=== PATIENT | female | born 1950 | race Caucasian/White ===

== ENCOUNTER 2016-10-28 09:27 | Observation (INO) | payer OTHER ==
[~2016-10-28] VITALS: Ht 172.7 cm; Wt 81.0 kg
[2016-10-28] MEDS ORDERED: ASPIRIN 81 MG CHEW PO STA (09:37)
[2016-10-28] MEDS ORDERED: ALUMINUM/MAGNESIUM SUSP 30 ML UDC PO STA (09:37)
[2016-10-28] MEDS ORDERED: NITROGLYCERIN 0.4 MG SL PER TAB CHARGE SL PRN ×2 (09:45→14:00)
--- NOTE | 2016-10-28 09:49 | EMERGENCY ROOM VISIT NOTE ---
History Report prepared by Jacqueline: Dakota Heredia Under the Supervision of: Dr. Bob Tomlin D.O. First contact with patient: 09:30 Chief Complaint: CHEST PAIN Stated Complaint: CHEST PAIN, TINGLING IN ARMS, HIGH BP History of Present Illness The patient is a 66 year old female who presents to the Emergency Room with complaints of persistent chest pain that started a couple days ago. She says that she called her primary care doctor's office this morning, and they recommended that the patient come here for an evaluation. The patient says that the pain is across the front of her chest, and she was not doing anything notable when the pain first came on. The patient rates the pain currently as a 6 out of 10 in severity. She also notes that she has been having arm tingling. The patient states that nothing makes the pain better or worse. She has not seen anybody for the pain. The patient denies any shortness of breath, cough, fevers, abdominal pain, leg swelling, or leg pain. The patient notes that her blood pressure has been high recently. Her blood pressure was 177/100 last night , and 153/93 this morning. The patient takes 5 mg Lisinopril, as well as Omeprazole. The patient took Tylenol last night for the pain, but it did not help. She has no family history of heart disease. The patient does not use tobacco products and she does not drink alcohol. Source of History: patient Onset: A couple days ago Position: chest Symptom Intensity: 6/10 currently Timing: other (persistent) Associated Symptoms: No SOB, No abdominal pain, No cough, No fevers Note: Associated symptoms: Tingling in arms. Denies leg swelling or leg pain. Review of Systems See HPI for pertinent positives & negatives. A total of 10 systems reviewed and were otherwise negative. Past Medical & Surgical Medical Problems: (1) GERD (gastroesophageal reflux disease) (2) HTN (hypertension) (3) Skin problem (4) Urinary problem Surgical Problems: (1) H/O colonoscopy (2) History of cholecystectomy (3) History of hysterectomy (4) Hx of cholecystectomy (5) Hx of tonsillectomy (6) S/P ARIES-BSO Family History Hypertension Social History Smoking Status: Never Smoker Alcohol Use: none Marital Status: Housing Status: lives with family Occupation Status: retired Current/Historical Medications Scheduled Cholecalciferol (Vitamin D), 1 TAB PO DAILY Ferrous Sulfate (Iron), 1 TAB PO DAILY Lisinopril (Zestril), 5 MG PO DAILY Multivitamin (Multivitamin), 1 TAB PO DAILY Ocuvite Preservision (Ocuvite Preservision), 1 TAB PO DAILY Omeprazole (Prilosec), 20 MG PO DAILY Allergies Coded Allergies: Amoxicillin (Verified Allergy, Intermediate, rash, itching, 10/28/16) Physical Exam Vital Signs Date Time Temp Pulse Resp B/P Pulse Ox O2 Delivery O2 Flow Rate FiO2 10/28/16 14:00 69 14 130/82 94 Room Air 10/28/16 14:00 98 Room Air 10/28/16 13:30 66 16 98 10/28/16 13:00 73 15 95 Room Air 10/28/16 12:30 69 17 98 10/28/16 12:00 66 15 129/78 96 10/28/16 11:30 68 15 127/84 96 10/28/16 11:00 68 13 94/75 96 Room Air 10/28/16 10:30 77 22 131/74 97 Room Air 10/28/16 10:07 96 Room Air 10/28/16 10:05 95 18 129/83 90 Room Air 10/28/16 10:00 94 19 147/96 96 Room Air 10/28/16 09:55 80 10/28/16 09:41 77 16 168/95 97 Room Air 10/28/16 09:39 97 Room Air 10/28/16 09:39 97 Room Air 10/28/16 09:34 37.2 88 18 175/93 94 Room Air Physical Exam GENERAL: Patient is awake, alert, mildly anxious appearing but overall comfortable. EYES: The conjunctivae are clear. The pupils are round and reactive. EARS, NOSE, MOUTH AND THROAT: The nose is without any evidence of any deformity. Mucous membranes are moist tongue is midline NECK: The neck is nontender and supple. RESPIRATORY: Normal respiratory effort is noted there is no evidence of wheezing rhonchi or rales CARDIOVASCULAR: Regular rate and rhythm noted there no murmurs rubs or gallops normal S1 normal S2 GASTROINTESTINAL: The abdomen is soft. Bowel sounds are present in all quadrants. Abdomen is nontender MUSCULOSKELETAL/EXTREMITIES: There is no evidence of gross deformity full range of motion is noted in the hips and shoulders SKIN: There is no obvious evidence of any rash. There are no petechiae, pallor or cyanosis noted. NEUROLOGIC: Patient is awake alert and oriented x3. Medical Decision & Procedures ER Provider Diagnostic Interpretation: X-ray results as stated below per interpretation by me and the radiologist. CHEST ONE VIEW PORTABLE CLINICAL HISTORY: CHEST PAIN dyspnea COMPARISON STUDY: No previous studies for comparison. FINDINGS: The bones soft tissues and hemidiaphragms are normal. The cardiomediastinal silhouette is normal. The lungs are clear. The pulmonary vasculature is normal. IMPRESSION: Negative chest. Electronically signed by: Mohinder Garcia M.D. 10/28/2016 10:00 AM Dictated Date/Time: 10/28/2016 10:00 AM Laboratory Results 10/28/16 09:40 Red Blood Count 4.67, Mean Corpuscular Volume 86.5, Mean Corpuscular Hemoglobin 29.6, Mean Corpuscular Hemoglobin Concent 34.2, Mean Platelet Volume 9.9, Neutrophils (%) (Auto) 78.6, Lymphocytes (%) (Auto) 14.5, Monocytes (%) (Auto) 5.5, Eosinophils (%) (Auto) 0.9, Basophils (%) (Auto) 0.4, Neutrophils # (Auto) 6.14, Lymphocytes # (Auto) 1.13, Monocytes # (Auto) 0.43, Eosinophils # (Auto) 0.07, Basophils # (Auto) 0.03 10/28/16 09:40 Test 10/28/16 09:40 10/28/16 10:16 10/28/16 12:14 White Blood Count 7.81 K/uL (4.8-10.8) Red Blood Count 4.67 M/uL (4.2-5.4) Hemoglobin 13.8 g/dL (12.0-16.0) Hematocrit 40.4 % (37-47) Mean Corpuscular Volume 86.5 fL (80-100) Mean Corpuscular Hemoglobin 29.6 pg (25-34) Mean Corpuscular Hemoglobin Concent 34.2 g/dl (32-36) Platelet Count 279 K/uL (130-400) Mean Platelet Volume 9.9 fL (7.4-10.4) Neutrophils (%) (Auto) 78.6 % Lymphocytes (%) (Auto) 14.5 % Monocytes (%) (Auto) 5.5 % Eosinophils (%) (Auto) 0.9 % Basophils (%) (Auto) 0.4 % Neutrophils # (Auto) 6.14 K/uL (1.4-6.5) Lymphocytes # (Auto) 1.13 K/uL (1.2-3.4) Monocytes # (Auto) 0.43 K/uL (0.11-0.59) Eosinophils # (Auto) 0.07 K/uL (0-0.5) Basophils # (Auto) 0.03 K/uL (0-0.2) RDW Standard Deviation 43.7 fL (36.4-46.3) RDW Coefficient of Variation 13.9 % (11.5-14.5) Immature Granulocyte % (Auto) 0.1 % Immature Granulocyte # (Auto) 0.01 K/uL (0.00-0.02) Prothrombin Time 10.9 SECONDS (9.0-12.0) Prothromb Time International Ratio 1.0 (0.9-1.1) Activated Partial Thromboplast Time 27.2 SECONDS (21.0-31.0) Partial Thromboplastin Ratio 1.0 Anion Gap 8.0 mmol/L (3-11) Est Creatinine Clear Calc Drug Dose 62.8 ml/min Estimated GFR () 70.0 Estimated GFR (Non- 60.4 BUN/Creatinine Ratio 12.0 (10-20) Calcium Level 9.2 mg/dl (8.5-10.1) Total Bilirubin 0.4 mg/dl (0.2-1) Direct Bilirubin 0.1 mg/dl (0-0.2) Aspartate Amino Transf (AST/SGOT) 18 U/L (15-37) Alanine Aminotransferase (ALT/SGPT) 30 U/L (12-78) Alkaline Phosphatase 80 U/L (45-117) Total Creatine Kinase 76 U/L (26-192) Creatine Kinase MB 0.6 ng/ml (0.5-3.6) Creatine Kinase MB Ratio 0.8 (0-3.0) Total Protein 7.3 gm/dl (6.4-8.2) Albumin 4.2 gm/dl (3.4-5.0) Lipase 194 U/L (73-393) Bedside D-Dimer 420 ng/mlFEU (0-450) Troponin I < 0.015 ng/ml (0-0.045) Laboratory results per my review. Medications Administered Medications (Trade) Dose Ordered Sig/Dominick Route Start Time Stop Time Status Last Admin Dose Admin Aspirin (Aspirin Chew) 324 mg NOW STAT PO 10/28/16 09:37 10/28/16 09:39 DC 10/28/16 09:58 324 MG Al Hydroxide/Mg Hydroxide (Maalox Susp) 30 ml NOW STAT PO 10/28/16 09:37 10/28/16 09:39 DC 10/28/16 09:58 30 ML Nitroglycerin (Nitrostat Tab) 0.4 mg Q5M PRN SL 10/28/16 09:45 10/28/16 14:51 DC 10/28/16 09:59 0.4 MG Acetaminophen (Tylenol Tab) 1,000 mg NOW STAT PO 10/28/16 11:15 10/28/16 11:17 DC 10/28/16 11:20 1,000 MG ECG Indication: chest pain Rate (beats per minute): 87 Rhythm: normal sinus Findings: PVC (frequent), T-wave inversion (High lateral) Comparison ECG Date: no prior available Change: Repeat ECG: Normal sinus rhythm at 64 bpm, no ectopy, no acute ST segment abnormalities. Persistence of high lateral T-wave inversions noted, resolution of PVC's, otherwise no change from earlier tracing. ED Course 929: The patient was evaluated in room A2. A complete history and physical examination were performed. 0937: Ordered Maalox Susp 30 ml PO, Aspirin Chew 324 mg PO. 0945: Ordered Nitrostat Tab 0.4 mg SL PRN. 1042: I reevaluated and updated the patient. 1115: Ordered Tylenol Tab 1000 mg PO. 1257: Upon reevaluation, the patient is resting comfortably. I discussed results and treatment plan with her. She verbalizes agreement and understanding. The patient will be evaluated for further management and care. 1400: I discussed the patient with Dr. Ethan Eldridge violent crimes detective. He will evaluate the patient for further treatment. Medical Decision Triage Nursing notes reviewed. Differential diagnosis: Etiologies such as cardiac ischemia, aortic dissection, pulmonary embolism, pneumonia, pneumothorax, musculoskeletal, infections, pericarditis, myocarditis , esophageal rupture, gastrointestinal, as well as others were entertained. The patient is a 66-year-old female who presented to emergency department for an evaluation of substernal chest pain. The patient states the pain was not exertional but she was concerned about the possibility of coronary artery disease. The patient was given aspirin and nitroglycerin in the emergency department. She did not have significant improvement of her pain. The patient was observed in the emergency department and had serial EKGs. She also had multiple troponins which were negative. I discussed the patient's laboratory and radiographic studies with her. I also discussed the limitations of the emergency department workup for chest pain with her. Given the patient's concerns I also discussed his case with the on-call [facility] hospitalist group. They've agreed to evaluate the patient in the emergency department for further management and disposition. The patient's d-dimer is negative. I do not feel this is consistent with a pulmonary embolism. She does not have any significant abdominal tenderness. Consults Time Called: 1300 Consulting Physician: Dr. Ethan Eldridge violent crimes detective Returned Call: 1400 I discussed the patient with Dr. Ethan Eldridge violent crimes detective. He will evaluate the patient for further treatment. Impression Primary Impression: Chest pain Additional Impression: Abnormal EKG Scribe Attestation The scribe's documentation has been prepared under my direction and personally reviewed by me in its entirety. I confirm that the note above accurately reflects all work, treatment, procedures, and medical decision making performed by me. Departure Information Dispostion Being Evaluated By Hospitalist Referrals Eleanor CEE M.D. (PCP) Patient Instructions My [facility] Problem Qualifiers Primary Impression: Chest pain Chest pain type: unspecified Qualified Codes: R07.9 - Chest pain, unspecified
[2016-10-28 09:56] LABS: BASO % 0.4 %; BASO ABS # 0.03 K/uL (0-0.2); COMPLETE YES; EOS % 0.9 %; HEMATOCRIT 40.4 % (37-47); IG% 0.1 %; LYMPH % 14.5 %; LYMPH ABS # 1.13 K/uL (1.2-3.4); MEAN CELL VOLUME 86.5 fL (80-100); MEAN CORPUSCULAR HEMOGLOBIN 29.6 pg (25-34); MEAN CORPUSCULAR HGB CONC 34.2 g/dl (32-36); MEAN PLATELET VOLUME 9.9 fL (7.4-10.4); MONO % 5.5 %; NEUT % 78.6 %; PLATELET COUNT 279 K/uL (130-400); RED BLOOD COUNT 4.67 M/uL (4.2-5.4); WHITE BLOOD COUNT 7.81 K/uL (4.8-10.8)
--- NOTE | 2016-10-28 10:02 | DIAGNOSTIC IMAGING REPORT ---
CHEST ONE VIEW PORTABLE CLINICAL HISTORY: CHEST PAIN dyspnea COMPARISON STUDY: No previous studies for comparison. FINDINGS: The bones soft tissues and hemidiaphragms are normal. The cardiomediastinal silhouette is normal. The lungs are clear. The pulmonary vasculature is normal. IMPRESSION: Negative chest. Electronically signed by: Mohinder Garcia M.D. 10/28/2016 10:00 AM Dictated Date/Time: 10/28/2016 10:00 AM
[2016-10-28 10:07] LABS: PROTHROMBIN TIME (PATIENT) 10.9 SECONDS (9.0-12.0)
[2016-10-28 10:13] LABS: ALT/SGPT 30 U/L (12-78); BLOOD UREA NITROGEN 12 mg/dl (7-18); CALCIUM 9.2 mg/dl (8.5-10.1); CARBON DIOXIDE 28 mmol/L (21-32); CHLORIDE 104 mmol/L (98-107); CREATININE 0.97 mg/dl (0.60-1.20); GLUCOSE 99 mg/dl (70-99); POTASSIUM 3.7 mmol/L (3.5-5.1); SODIUM 140 mmol/L (136-145)
[2016-10-28 10:18] LABS: ALKALINE PHOSPHATASE 80 U/L (45-117); AST/SGOT 18 U/L (15-37); CKMB/CK RATIO 0.8 (0-3.0)
[2016-10-28] MEDS ORDERED: MULT-190 PO (10:28)
[2016-10-28] MEDS ORDERED: PRLSR20 PO (10:28)
[2016-10-28] MEDS ORDERED: FERR1TAB23 PO (10:28)
[2016-10-28] MEDS ORDERED: CHOL100010 PO (10:28)
[2016-10-28] MEDS ORDERED: MULT-506 PO (10:28)
[2016-10-28] MEDS ORDERED: LISI-729 PO (10:28)
[2016-10-28] MEDS ORDERED: ACETAMINOPHEN 500 MG TAB PO STA (11:15)
[2016-10-28] MEDS ORDERED: ATORVASTATIN 40 MG TAB PO ONE (13:56)
[2016-10-28 14:00] VITALS: BP 145/83; PULSE 70; TEMP 36.4; O2SAT 98; BMI 27.1
[2016-10-28] MEDS ORDERED: ONDANSETRON INJ 2 MG/ML 2 ML VIAL IV PRN (14:00)
[2016-10-28] MEDS ORDERED: ACETAMINOPHEN 325 MG TAB PO PRN (14:00)
[2016-10-28] MEDS ORDERED: ALUMINUM/MAGNESIUM SUSP 30 ML UDC PO PRN (14:00)
--- NOTE | 2016-10-28 14:08 | History and Physical ---
History & Physical Date & Time of Service: Oct 28, 2016 at 13:59 Chief Complaint: Chest Pain, Tingling In Arms, High Bp Primary Care Physician: Eleanor CEE M.D. History of Present Illness Source: patient, family, clinic records, hospital records Patient seen and examined. 66 year old female with PMHx of HTN and GERD presents to the ED complaining of chest pressure x 4 days. She states the pressure started over the weekend and has been continuous since but waxing and waning in intensity rating the intensity as a 6/10 at its worst. She reports associated tingling down her BL arms on occasion and nausea. She reports last night her SBP was >170She denies fevers, chills, URI symptoms, palpitations, SOB , vomiting ,diarrhea, dysuria, calf pain and edema. She reports recent stress with her father passing away about a month ago. She denies personal or family Hx of CAD and she is a life long nonsmoker. In the ED VS are stable, Troponin is negative x 2, EKG is nonischemic x 2, Ddimer is negative. She received maalox , nitro, Aspirin, and tylenol without any changes in the chest pressure. She will be observed for further workup and treatment. Past Medical/Surgical History Medical Problems: (1) GERD (gastroesophageal reflux disease) Status: Chronic (2) HTN (hypertension) Status: Chronic Surgical Problems: (1) H/O colonoscopy Status: Chronic (2) History of cholecystectomy Status: Resolved (3) History of hysterectomy Status: Resolved (4) Hx of cholecystectomy Status: Chronic (5) Hx of tonsillectomy Status: Chronic (6) S/P ARIES-BSO Status: Chronic Family History Hypertension Social History Smoking Status: Never Smoker Alcohol Use: none Marital Status: Housing status: lives with family Occupational Status: retired Allergies Coded Allergies: Amoxicillin (Verified Allergy, Intermediate, rash, itching, 10/28/16) Home Medications Scheduled Cholecalciferol (Vitamin D), 1 TAB PO DAILY Ferrous Sulfate (Iron), 1 TAB PO DAILY Lisinopril (Zestril), 5 MG PO DAILY Multivitamin (Multivitamin), 1 TAB PO DAILY Ocuvite Preservision (Ocuvite Preservision), 1 TAB PO DAILY Omeprazole (Prilosec), 20 MG PO DAILY Review of Systems See above for pertinent positives & negatives. A total of 10 systems reviewed and were otherwise negative. Physical Exam Vital Signs Date Time Temp Pulse Resp B/P Pulse Ox O2 Delivery O2 Flow Rate FiO2 10/28/16 12:00 66 15 129/78 96 10/28/16 11:30 68 15 127/84 96 10/28/16 11:00 68 13 94/75 96 Room Air 10/28/16 10:30 77 22 131/74 97 Room Air 10/28/16 10:07 96 Room Air 10/28/16 10:05 95 18 129/83 90 Room Air 10/28/16 10:00 94 19 147/96 96 Room Air 10/28/16 09:55 80 10/28/16 09:41 77 16 168/95 97 Room Air 10/28/16 09:39 97 Room Air 10/28/16 09:39 97 Room Air 10/28/16 09:34 37.2 88 18 175/93 94 Room Air General Appearance: + pertinent finding (Pleasant WD/WN 66 year old female lying in bed in NAD with at bedside ) Head: normocephalic, atraumatic Eyes: PERRL, EOMI, sclerae normal ENT: hearing grossly normal, pharynx normal Neck: supple, no JVD Respiratory/Chest: chest non-tender, lungs clear, normal breath sounds, no respiratory distress, no accessory muscle use Cardiovascular: regular rate, rhythm, no edema, no gallop, no JVD, no murmur, normal peripheral pulses Abdomen/GI: normal bowel sounds, non tender, soft Back: normal inspection, no muscle spasm Extremities/Musculoskelatal: no calf tenderness, normal capillary refill, no pedal edema Neurologic/Psych: alert, oriented x 3, + pertinent finding (no focal deficits ) Skin: normal color, warm/dry, no rash Lymphatic: no adenopathy Diagnostics Laboratory Results Results Past 24 Hours Test 10/28/16 09:40 10/28/16 10:16 10/28/16 12:14 Range/Units White Blood Count 7.81 4.8-10.8 K/uL Red Blood Count 4.67 4.2-5.4 M/uL Hemoglobin 13.8 12.0-16.0 g/dL Hematocrit 40.4 37-47 % Mean Corpuscular Volume 86.5 80-100 fL Mean Corpuscular Hemoglobin 29.6 25-34 pg Mean Corpuscular Hemoglobin Concent 34.2 32-36 g/dl Platelet Count 279 130-400 K/uL Mean Platelet Volume 9.9 7.4-10.4 fL Neutrophils (%) (Auto) 78.6 % Lymphocytes (%) (Auto) 14.5 % Monocytes (%) (Auto) 5.5 % Eosinophils (%) (Auto) 0.9 % Basophils (%) (Auto) 0.4 % Neutrophils # (Auto) 6.14 1.4-6.5 K/uL Lymphocytes # (Auto) 1.13 1.2-3.4 K/uL Monocytes # (Auto) 0.43 0.11-0.59 K/uL Eosinophils # (Auto) 0.07 0-0.5 K/uL Basophils # (Auto) 0.03 0-0.2 K/uL RDW Standard Deviation 43.7 36.4-46.3 fL RDW Coefficient of Variation 13.9 11.5-14.5 % Immature Granulocyte % (Auto) 0.1 % Immature Granulocyte # (Auto) 0.01 0.00-0.02 K/uL Prothrombin Time 10.9 9.0-12.0 SECONDS Prothromb Time International Ratio 1.0 0.9-1.1 Activated Partial Thromboplast Time 27.2 21.0-31.0 SECONDS Partial Thromboplastin Ratio 1.0 Sodium Level 140 136-145 mmol/L Potassium Level 3.7 3.5-5.1 mmol/L Chloride Level 104 98-107 mmol/L Carbon Dioxide Level 28 21-32 mmol/L Anion Gap 8.0 3-11 mmol/L Blood Urea Nitrogen 12 7-18 mg/dl Creatinine 0.97 0.60-1.20 mg/dl Est Creatinine Clear Calc Drug Dose 62.8 ml/min Estimated GFR () 70.0 Estimated GFR (Non- 60.4 BUN/Creatinine Ratio 12.0 10-20 Random Glucose 99 70-99 mg/dl Calcium Level 9.2 8.5-10.1 mg/dl Total Bilirubin 0.4 0.2-1 mg/dl Direct Bilirubin 0.1 0-0.2 mg/dl Aspartate Amino Transf (AST/SGOT) 18 15-37 U/L Alanine Aminotransferase (ALT/SGPT) 30 12-78 U/L Alkaline Phosphatase 80 45-117 U/L Total Creatine Kinase 76 26-192 U/L Creatine Kinase MB 0.6 0.5-3.6 ng/ml Creatine Kinase MB Ratio 0.8 0-3.0 Troponin I < 0.015 < 0.015 0-0.045 ng/ml Total Protein 7.3 6.4-8.2 gm/dl Albumin 4.2 3.4-5.0 gm/dl Lipase 194 73-393 U/L Bedside D-Dimer 420 0-450 ng/mlFEU Diagnostic Radiology CXR Per radiologist read: IMPRESSION: Negative chest. EKG EKG 1 NSR with PVCs 87 BPM, QTc 445 EKG 2 NSR 64 BPM Qtc 435 Impression Assessment and Plan 66 year old female presents to the ED with four days of waxing and waning chest pressure not alleviated by nitro or Maalox CHEST PAIN R/O ACS -Observation in tele -Troponin negative x 2, Ddimer negative, EKG nonischemic. ?GERD component -Risk factors for ACS: Age, HTN -Serial García and EKGs -Fasting lipid panel in AM -Aspirin daily -Start high intensity statin for plaque stabilization -Nitro, prn chest pain -AHA diet npo aftermidnight for stress test -Maalox prn for possible GERD component -CBC, PRP, Mg daily -VSS stable, monitor in tele HTN -stable -continue Lisinopril -monitor in tele GERD -continue PPI DVT PROPHYLAXIS: Sq Lovenox CODE STATUS: FULL CODE DISPO:observation pending further workup Patient seen in collaboration with Dr. Long VTE Prophylaxis VTE Risk Assessment Done? Y/N: Yes Risk Level: Moderate Note ATTENDING ADDENDUM Record reviewed. Patient interviewed and examined. Care coordinated with Jaida Anaya PA-C. Please refer to her documentation for patient's history. Briefly, 66 YO female with history of hypertension. Presented to ED with 2 days of nonexertional chest pain. No relief with antacids or NTG. Recent stress- father last month. EXAM: General- NAD VS- as noted HEENT- anicteric Neck- carotids 2/2; no JVD Lungs- clear to auscultation and percussion Heart- RRR, no murmur or gallop Abdomen- + BS, soft, nontender Extremities- no pretibial edema or calf tenderness Neuro- alert, oriented DATA: Trop neg x 2. D-dimer normal. LFT's normal. Other lab studies as noted. CXR neg. EKG performed at 09:34 reviewed and demonstrated NSR at 75 / minute, frequent PVC's, no acute ST or T-wave abnormalities. EKG performed at 12:06 reviewed and demonstrated NSR at 64 / minute, resolution of PVC's, no acute ST or T-wave abnormalities. ASSESSMENT AND PLAN: Nonexertional chest pain. Personal risk factors for CAD: hypertension. Troponin in ED normal. No acute EKG changes. Check serial cardiac markers. Tentative treadmill stress echo in a.m. D-dimer normal, so VTE very unlikely. History of GERD. Increase PPI to BID. May need EGD if symptoms persist. Frequent PVC's on initial EKG, improved by 2nd tracing. Serum K 3.7. Check Mg and TSH. Monitor. History of hypertension treated with lisinopril. Initial BP elevated in ED, improved after NTG. Continue lisinopril. Follow and titrate Rx. Please refer to BRITT Anaya's documentation for discussion of other issues. Deion Long MD .
[2016-10-28] MEDS ORDERED: IV FLUIDS COMPLETED PRN (14:15)
[2016-10-28 15:29] VITALS: Ht 172.7 cm; Wt 81.0 kg
[2016-10-28 19:48] VITALS: BP 130/70; PULSE 71; TEMP 36.4; O2SAT 94
[2016-10-28 20:00] VITALS: O2SAT 94
[2016-10-28] MEDS ORDERED: PANTOprazole SOD 40 MG TAB PO SCH (21:00)
[2016-10-28] MEDS ORDERED: ENOXAPARIN 40 MG/0.4 ML SYR SC SCH (21:00)
[2016-10-29] VITALS: BP 127/75; PULSE 59; TEMP 36.2; O2SAT 95
[2016-10-29 03:54] VITALS: BP 123/79; PULSE 68; TEMP 36.2; O2SAT 95
[2016-10-29 04:00] VITALS: O2SAT 95
[2016-10-29 07:04] LABS: HEMATOCRIT 38.3 % (37-47); MEAN CELL VOLUME 86.5 fL (80-100); MEAN CORPUSCULAR HEMOGLOBIN 29.3 pg (25-34); MEAN CORPUSCULAR HGB CONC 33.9 g/dl (32-36); MEAN PLATELET VOLUME 9.9 fL (7.4-10.4); PLATELET COUNT 233 K/uL (130-400); RED BLOOD COUNT 4.43 M/uL (4.2-5.4); WHITE BLOOD COUNT 4.51 K/uL (4.8-10.8)
[2016-10-29 07:31] LABS: BUN/CREATININE RATIO 15.9 (10-20); CREATININE 0.88 mg/dl (0.60-1.20); MAGNESIUM 2.2 mg/dl (1.8-2.4); POTASSIUM 3.9 mmol/L (3.5-5.1)
[2016-10-29 07:40] LABS: CHOLESTEROL/HDL RATIO 2.5; THYROID STIMULATING HORMONE 3.36 uIu/ml (0.300-4.500)
[2016-10-29 07:58] VITALS: BP 138/92; PULSE 71; TEMP 36.8; O2SAT 91
[2016-10-29] MEDS ORDERED: LISINOPRIL 5 MG TAB PO SCH (09:00)
[2016-10-29] MEDS ORDERED: PANTOprazole SOD 40 MG TAB PO SCH (09:00)
[2016-10-29] MEDS ORDERED: ASPIRIN 81 MG ECTAB PO SCH (09:00)
[2016-10-29] MEDS ORDERED: MULTIVITAMIN TAB PO SCH (09:00)
[2016-10-29] MEDS ORDERED: FERROUS SULFATE 325 MG TAB PO SCH (09:00)
[2016-10-29] MEDS ORDERED: CHOLECALCIFEROL 1000 INTER.UNIT TAB PO SCH (09:00)
[2016-10-29] MEDS ORDERED: ATORVASTATIN 40 MG TAB PO SCH (09:00)
[2016-10-29] MEDS ORDERED: CEROVITE ADV FORMULA TAB PO SCH (09:00)
--- NOTE | 2016-10-29 09:58 | Progress Note ---
Internal Med Progress Note Date of Service: Oct 29, 2016. Provider Documentation: SUBJECTIVE: Patient is seen and examined at bedside. States chest pain, nausea, tingling in arms has resolved. She feels much better today. Denies any SOB, cough. Offers no other complaints. OBJECTIVE: Vital Signs-as noted below Physical Exam: General Appearance:Moderately built and nourished, no apparent distress Head: normocephalic, Atraumatic Eyes: normal inspection, EOMI, PERRLA Neck: supple, Trachea midline Respiratory/Chest: Normal breath sounds, CTA Cardiovascular: S1, S2, No murmur Abdomen/GI:Soft, Non tender, Bowel sounds present Extremities/Musculoskelatal:normal inspection, no edema Neurologic/Psych:AAOX3, grossly no focal neurological deficits Skin: normal color, warm Lab data as noted below. ASSESSMENT & PLAN: 66 yr old female presents to the ED with four days of waxing and waning chest pressure not alleviated by nitro or Maalox CHEST PAIN R/O ACS Risk factors for ACS: Age, HTN Likely secondary to stress: Recent in family. Other DD:GERD Troponin negative x 2, D dimer negative CXR: no acute pathology EKG:frequent PVC's, no acute ST or T-wave abnormalities, Repeat EKG: PVCs resolved Fasting lipid panel: wnl TSH:wnl On Aspirin, statin Has stress test today:Which is negative for inducible ischemia Plan to start Metoprolol 12.5mg BID to help with PVCs HTN stable continue Lisinopril Plan to start on Metoprolol 12.5mg BID to help with PVCs GERD continue PPI Plan to increase PPI to BID May need EGD as outpatient if symptoms persist DVT PX: SQ Lovenox CODE STATUS: FULL CODE DISPOSITION: Plan to discharge home today Follow up with on November 04 2016 at 10:05 am PROCEDURES: Stress Test: * Stress ECG: No ST changes. No arrhythmias. * There was an accelerated heart rate response to exercise. Ventricular ectopy resolved with stress and returned in recovery. * Resting wall motion: Normal. Stress wall motion: Appropriate increase in Left ventricular systolic function and decrease in cavity size. No stress induced segmental wall motion abnormalities. * The left ventricular ejection fraction increases normally with stress. The left ventricular end-systolic cavity size reduces post-stress (normal response). The left ventricular wall motion with stress is normal. * There is mild concentric left ventricular hypertrophy. * Left ventricular systolic function is normal. * Ejection Fraction = 60-65%. Vital Signs: Date Time Temp Pulse Resp B/P Pulse Ox O2 Delivery O2 Flow Rate FiO2 10/29/16 16:39 Room Air 10/29/16 12:00 Room Air 10/29/16 11:30 36.3 73 18 138/73 95 Room Air 10/29/16 08:00 Room Air 10/29/16 07:58 36.8 71 16 138/92 91 Room Air 10/29/16 04:00 95 Room Air 10/29/16 03:54 36.2 68 16 123/79 95 Room Air 10/29/16 00:00 36.2 59 127/75 95 Room Air 10/29/16 00:00 95 Room Air 10/28/16 20:00 94 Room Air 10/28/16 19:48 36.4 71 18 130/70 94 Room Air Lab Results: Results Past 24 Hours Test 10/28/16 17:50 10/29/16 00:30 10/29/16 06:55 Range/Units Troponin I < 0.015 < 0.015 0-0.045 ng/ml White Blood Count 4.51 4.8-10.8 K/uL Red Blood Count 4.43 4.2-5.4 M/uL Hemoglobin 13.0 12.0-16.0 g/dL Hematocrit 38.3 37-47 % Mean Corpuscular Volume 86.5 80-100 fL Mean Corpuscular Hemoglobin 29.3 25-34 pg Mean Corpuscular Hemoglobin Concent 33.9 32-36 g/dl RDW Standard Deviation 44.0 36.4-46.3 fL RDW Coefficient of Variation 13.8 11.5-14.5 % Platelet Count 233 130-400 K/uL Mean Platelet Volume 9.9 7.4-10.4 fL Sodium Level 142 136-145 mmol/L Potassium Level 3.9 3.5-5.1 mmol/L Chloride Level 106 98-107 mmol/L Carbon Dioxide Level 29 21-32 mmol/L Anion Gap 7.0 3-11 mmol/L Blood Urea Nitrogen 14 7-18 mg/dl Creatinine 0.88 0.60-1.20 mg/dl Est Creatinine Clear Calc Drug Dose 69.3 ml/min Estimated GFR () 78.8 Estimated GFR (Non- 68.0 BUN/Creatinine Ratio 15.9 10-20 Random Glucose 99 70-99 mg/dl Calcium Level 8.9 8.5-10.1 mg/dl Magnesium Level 2.2 1.8-2.4 mg/dl Triglycerides Level 73 0-150 mg/dl Cholesterol Level 183 0-200 mg/dl HDL Cholesterol 72 mg/dl LDL Cholesterol, Calculated 96 mg/dl VLDL Cholesterol, Calculated 15 mg/dl Cholesterol/HDL Ratio 2.5 Thyroid Stimulating Hormone (TSH) 3.360 0.300-4.500 uIu/ml
[2016-10-29 11:30] VITALS: BP 138/73; PULSE 73; TEMP 36.3; O2SAT 95
[2016-10-29 14:53] LABS: CALCIUM 8.9 mg/dl (8.5-10.1)
--- NOTE | 2016-10-29 16:47 | EXERCISE STRESS ECHO ---
*NOTICE TO RECEIVING [employer] This information is strictly Confidential and protected under [place] law. [place] law prohibits you from making any further disclosure of this information unless further disclosure is expressly permitted by the written consent of the person to whom it pertains or is authorized by law. A general authorization for the release of medical or other information is not sufficient for this purpose. Hospital accepts no responsibility if the information is made available to any other person, INCLUDING THE PATIENT. Interpretation Summary * Name: MARTHA STEELE Study Date: 10/29/2016 02:59 PM BP: 162/108 mmHg * Patient Location: [facility] HR: 66 * : 1950 (M/d/yyyy) Gender: Female Height: 68 in * Age: 66 yrs Ethnicity: CA Weight: 178 lb * Ordering Physician: Deion Long * Performed By: Salas Dougherty RCS * * Reason For Study: CHEST PAIN * BSA: 1.9 m2 * The stress echocardiogram is negative for inducible ischemia. * _ workload achieved. * -- Conclusions -- * Stress ECG: No ST changes. No arrhythmias. * There was an accelerated heart rate response to exercise. Ventricular ectopy resolved with stress and returned in recovery. * Resting wall motion: Normal. Stress wall motion: Appropriate increase in Left ventricular systolic function and decrease in cavity size. No stress induced segmental wall motion abnormalities. * The left ventricular ejection fraction increases normally with stress. The left ventricular end-systolic cavity size reduces post-stress (normal response). The left ventricular wall motion with stress is normal. * There is mild concentric left ventricular hypertrophy. * Left ventricular systolic function is normal. * Ejection Fraction = 60-65%. Procedure Details * ECHOEX, CPT #[id number] * ECHO COLOR FLOW, CPT #[id number] * ECHO DOPPLER, CPT #[id number] Left Ventricle * The left ventricle is normal in size. * There is mild concentric left ventricular hypertrophy. * The basal septum is thickened and angulated consistent with sigmoid septum. * Ejection Fraction = 60-65%. * Left ventricular systolic function is normal. * The left ventricular ejection fraction increases normally with stress. The left ventricular end-systolic cavity size reduces post-stress (normal response). The left ventricular wall motion with stress is normal. * Resting wall motion: Normal. Stress wall motion: Appropriate increase in Left ventricular systolic function and decrease in cavity size. No stress induced segmental wall motion abnormalities. Right Ventricle * The right ventricle is normal in size and function. Atria * The left atrial size is normal. * Right atrial size is normal. * No ASD detected; PFO is not assessed. Mitral Valve * The mitral valve anatomy is normal. * There is no mitral valve stenosis. * Significant mitral regurgitation is absent. Tricuspid Valve * The tricuspid valve anatomy is normal. * There is no tricuspid stenosis. * Significant tricuspid regurgitation is absent. Aortic Valve * The aortic valve is trileaflet. * Aortic stenosis is absent. * There is no significant aortic regurgitation. Pulmonic Valve * The pulmonary valve is not well seen, but the Doppler examination is normal without significant regurgitation or stenosis. Great Vessels * The aortic root and proximal ascending aorta are normal sized. Pericardium * There is no pericardial effusion. Stress Parameters * Baseline EKG -- Sinus with occasional ventricular ectopy * Stress ECG: No ST changes. No arrhythmias. * There was an accelerated heart rate response to exercise. Ventricular ectopy resolved with stress and returned in recovery. * The stress portion of this study was personally supervised by the undersigned interpreting physician. * Rest heart rate was '64' BPM. * Rest blood pressure was '162/108' * Maximum heart rate achieved was 153 bpm. * Maximum heart rate was 100 % of maximum age-predicted heart rate. * Maximum blood pressure was '181/84' * Total exercise time was '6:00' * Maximum exercise MET level achieved was '7.0' METS * Maximum treadmill speed was '2.5' miles per hour. * Maximum treadmill elevation was '12'% grade. * Exercise was terminated due to 'achieving target heart rate' * Normal blood pressure response to exercise. Left Ventricular Diastolic Function * Grade I diastolic dysfunction, (abnormal relaxation pattern). MMode 2D Measurements and Calculations IVSd 1.2 cm IVSs 1.5 cm LVIDd 3.8 cm LVIDs 2.5 cm LVPWd 1.3 cm LVPWs 1.8 cm IVS/LVPW 0.97 FS 34.2 % EDV(Teich) 63.0 ml ESV(Teich) 22.7 ml EF(Teich) 63.9 % EDV(cubed) 56.1 ml ESV(cubed) 16.0 ml EF(cubed) 71.5 % % IVS thick 20.0 % % LVPW thick 43.2 % LV mass(C)d 163.5 grams LV mass(C)dI 84.1 grams/m\S\2 LV mass(C)s 149.5 grams LV mass(C)sI 76.8 grams/m\S\2 CO(Teich) 2.6 l/min CI(Teich) 1.3 l/min/m\S\2 SV(Teich) 40.3 ml SI(Teich) 20.7 ml/m\S\2 CO(cubed) 2.6 l/min CI(cubed) 1.3 l/min/m\S\2 SV(cubed) 40.1 ml SI(cubed) 20.6 ml/m\S\2 Ao root diam 3.3 cm Ao root area 8.4 cm\S\2 ACS 1.8 cm LA dimension 3.5 cm asc Aorta Diam 3.0 cm LA/Ao 1.1 LVAd ap4 30.7 cm\S\2 LVLd ap4 8.3 cm EDV(MOD-sp4) 93.0 ml LVAs ap4 17.4 cm\S\2 LVLs ap4 7.0 cm ESV(MOD-sp4) 36.0 ml EF(MOD-sp4) 61.3 % LVAd ap2 28.2 cm\S\2 LVLd ap2 8.4 cm EDV(MOD-sp2) 79.0 ml LVAs ap2 15.8 cm\S\2 LVLs ap2 6.9 cm ESV(MOD-sp2) 31.0 ml EF(MOD-sp2) 60.8 % CO(MOD-sp4) 3.6 l/min CI(MOD-sp4) 1.9 l/min/m\S\2 SV(MOD-sp4) 57.0 ml SI(MOD-sp4) 29.3 ml/m\S\2 CO(MOD-sp2) 3.1 l/min CI(MOD-sp2) 1.6 l/min/m\S\2 SV(MOD-sp2) 48.0 ml SI(MOD-sp2) 24.7 ml/m\S\2 Doppler Measurements and Calculations MV E max mora 56.3 cm/sec MV A max mora 84.4 cm/sec MV E/A 0.67 MV P1/2t max mora 69.0 cm/sec MV P1/2t 123.8 msec MVA(P1/2t) 1.8 cm\S\2 MV dec slope 163.2 cm/sec\S\2 MV dec time 0.36 sec Ao V2 max 112.0 cm/sec Ao max PG 5.0 mmHg Ao max PG (full) 1.8 mmHg LV V1 max PG 3.3 mmHg LV V1 max 90.3 cm/sec PA V2 max 89.9 cm/sec PA max PG 3.2 mmHg
[2016-10-29] MEDS ORDERED: LPR25 PO (17:02)
--- NOTE | 2016-10-29 17:07 | Discharge Summary ---
Discharge Summary Date of Service Oct 29, 2016. Discharge Summary Admission Date: Oct 28, 2016 at 13:53 Discharge Date: Oct 29, 2016 Discharge Disposition: Home Principal Diagnosis: Chest pain: ruled out ACS Procedures: Stress ECHO: * Stress ECG: No ST changes. No arrhythmias. * There was an accelerated heart rate response to exercise. Ventricular ectopy resolved with stress and returned in recovery. * Resting wall motion: Normal. Stress wall motion: Appropriate increase in Left ventricular systolic function and decrease in cavity size. No stress induced segmental wall motion abnormalities. * The left ventricular ejection fraction increases normally with stress. The left ventricular end-systolic cavity size reduces post-stress (normal response). The left ventricular wall motion with stress is normal. * There is mild concentric left ventricular hypertrophy. * Left ventricular systolic function is normal. * Ejection Fraction = 60-65%. CXR: Negative chest. Pending Studies/Follow-Up: Follow up with on November 04 2016 at 10:05 am Start taking Prilosec twice a day for 2 weeks and switch back to once day after 2 weeks if no resolution of symptoms. Consider to get endoscopy as outpatient per recommendations from your primary care physician Seek immediate medical attention if your symptoms reoccur or worsen. Medication Reconciliation New Medications: Metoprolol Tartrate (Lopressor) 25 Mg Tab 12.5 MG PO BID for 30 Days, #30 TAB Continued Medications: Cholecalciferol (Vitamin D) 1,000 Unit Tab 1 TAB PO DAILY Ferrous Sulfate (Iron) 325 Mg Tab 1 TAB PO DAILY Lisinopril (Zestril) 5 Mg Tab 5 MG PO DAILY, TAB Multivitamin (Multivitamin) Tab 1 TAB PO DAILY, TAB Ocuvite Preservision (Ocuvite Preservision) 1 Tab Tab 1 TAB PO DAILY, TAB Omeprazole (Prilosec) 20 Mg Capcr 20 MG PO DAILY, CAP Admission Information HPI (per Admitting provider): Patient seen and examined. 66 year old female with PMHx of HTN and GERD presents to the ED complaining of chest pressure x 4 days. She states the pressure started over the weekend and has been continuous since but waxing and waning in intensity rating the intensity as a 6/10 at its worst. She reports associated tingling down her BL arms on occasion and nausea. She reports last night her SBP was >170She denies fevers, chills, URI symptoms, palpitations, SOB , vomiting ,diarrhea, dysuria, calf pain and edema. She reports recent stress with her father passing away about a month ago. She denies personal or family Hx of CAD and she is a life long nonsmoker. In the ED VS are stable, Troponin is negative x 2, EKG is nonischemic x 2, Ddimer is negative. She received maalox , nitro, Aspirin, and tylenol without any changes in the chest pressure. She will be observed for further workup and treatment. Physical Exam (per Admitting): General Appearance: + pertinent finding Head: normocephalic, atraumatic Eyes: PERRL, EOMI, sclerae normal ENT: hearing grossly normal, pharynx normal Neck: supple, no JVD Respiratory/Chest: chest non-tender, lungs clear, normal breath sounds, no respiratory distress, no accessory muscle use Cardiovascular: regular rate, rhythm, no edema, no gallop, no JVD, no murmur , normal peripheral pulses Abdomen/GI: normal bowel sounds, non tender, soft Back: normal inspection, no muscle spasm Extremities/Musculoskelatal: no calf tenderness, normal capillary refill, no pedal edema Neurologic/Psych: alert, oriented x 3, + pertinent finding Skin: normal color, warm/dry, no rash Lymphatic: no adenopathy Hospital Course 66 yr old female presents to the ED with four days of waxing and waning chest pressure not alleviated by nitro or Maalox CHEST PAIN R/O ACS Risk factors for ACS: Age, HTN Likely secondary to stress: Recent in family. Other DD:GERD Troponin negative x 2, D dimer negative CXR: no acute pathology EKG:frequent PVC's, no acute ST or T-wave abnormalities, Repeat EKG: PVCs resolved Fasting lipid panel: wnl TSH:wnl On Aspirin, statin Has stress test today:Which is negative for inducible ischemia Plan to start Metoprolol 12.5mg BID to help with PVCs HTN stable continue Lisinopril Plan to start on Metoprolol 12.5mg BID to help with PVCs GERD continue PPI Plan to increase PPI to BID May need EGD as outpatient if symptoms persist DVT PX: SQ Lovenox CODE STATUS: FULL CODE DISPOSITION: Plan to discharge home today Follow up with on November 04 2016 at 10:05 am PROCEDURES: Stress Test: * Stress ECG: No ST changes. No arrhythmias. * There was an accelerated heart rate response to exercise. Ventricular ectopy resolved with stress and returned in recovery. * Resting wall motion: Normal. Stress wall motion: Appropriate increase in Left ventricular systolic function and decrease in cavity size. No stress induced segmental wall motion abnormalities. * The left ventricular ejection fraction increases normally with stress. The left ventricular end-systolic cavity size reduces post-stress (normal response). The left ventricular wall motion with stress is normal. * There is mild concentric left ventricular hypertrophy. * Left ventricular systolic function is normal. * Ejection Fraction = 60-65%. Total time spent on discharge = This includes examination of the patient, discharge planning, medication reconciliation, and communication with other providers. Discharge Instructions Discharge Instructions Date of Service Oct 29, 2016. Admission Reason for Admission: Chest Pain Discharge Discharge Diagnosis / Problem: Chest Pain Discharge Goals Goal(s): Decrease discomfort, Improve function Activity Recommendations Activity Limitations: resume your previous activity Exercise/Sports Limitations: as tolerated . Instructions / Follow-Up Instructions / Follow-Up Follow up with on November 04 2016 at 10:05 am Start taking Prilosec twice a day for 2 weeks and switch back to once day after 2 weeks if no resolution of symptoms. Consider to get endoscopy as outpatient per recommendations from your primary care physician Seek immediate medical attention if your symptoms reoccur or worsen. Current Hospital Diet Patient's current hospital diet: AHA Diet (Heart Healthy) Discharge Diet Recommended Diet: AHA Diet (Heart Healthy) Pending Studies Studies pending at discharge: no Laboratory Results Lipid Panel Test 10/29/16 06:55 Range/Units Triglycerides Level 73 0-150 mg/dl Cholesterol Level 183 0-200 mg/dl HDL Cholesterol 72 mg/dl Cholesterol/HDL Ratio 2.5 LDL Cholesterol, Calculated 96 mg/dl Medical Emergencies . Who to Call and When: Medical Emergencies: If at any time you feel your situation is an emergency, please call 911 immediately. . Non-Emergent Contact Non-Emergency issues call your: Primary Care Provider Call Non-Emergent contact if: you have a fever, your pain is not controlled, your pain is worsening, your pain is unusual for you, you have any medication questions . . "Provider Documentation" section prepared by Wili Keene. VTE Core Measure Inpt VTE Proph given/why not?: Enoxaparin (Lovenox)SQ
[2016-10-29 17:25] VITALS: BP 138/73; PULSE 73; TEMP 36.3; O2SAT 95
== END 2016-10-29 18:04 | disposition home or self-care (01) ==
LOC: ENRESERVTM → ENRESERVDT → C.EDB 09:29 → C.2E 13:53
PROVIDERS: ADMIT Hospitalist; ATTEND Internal Medicine
DX: R07.9 Chest pain, unspecified (principal); I10 Essential (primary) hypertension; K21.9 Gastro-esophageal reflux disease without esophagitis